=== PATIENT | male | born 1960 | race Caucasian/White ===

== ENCOUNTER 2017-11-10 09:04 | Outpatient (CLI) | payer OTHER ==
--- NOTE | 2017-11-10 10:59 | MRI ---
MRI OF THE RIGHT KNEE: DATE: 11/10/17. PROVIDED CLINICAL HISTORY: Right knee pain. FINDINGS: The anterior cruciate ligament, posterior cruciate ligament, medial collateral ligament, and lateral collateral ligamentous complex demonstrate an intact MR appearance, as does the extensor mechanism. There is a complex nondisplaced tear involving the body and posterior horn of the medial meniscus. T he lateral meniscus demonstrates no evidence for tear. There is tricompartmental osteophyte formation and articular cartilage irregularity. Focal near full -thickness cartilage fissure involves the lateral patellar facet inferiorly. Partial thickness small chondral delamination involves more cranial aspects of lateral patellar facet. There is articular c artilage loss involving the central weight bearing portions of the medial femoral condyle which appea rs focally full thickness and associated with minimal subcortical signal alteration. There is a moderate to large knee joint effusion. No focal concerning regional marrow or muscular signal abnormality apparent. IMPRESSION: 1. Complex nondisplaced body and posterior horn medial meniscal tear. 2. Tricompartmental degenerative chondrosis with preferential involvement of medial femoral condyle and lateral patellar facet. 3. Moderate to large knee joint effusion. POS: [facility]UNG
== END 2017-11-10 09:05 | disposition home or self-care (01) ==
LOC: TBSIIMAG 09:04
PROVIDERS: ATTEND Orthopaedic Surgery
DX: M25.561 Pain in right knee (principal); S83.231A Complex tear of medial meniscus, current injury, right knee, initial encounter; M25.461 Effusion, right knee

== ENCOUNTER 2017-11-25 12:31 | Outpatient (CLI) | payer OTHER ==
[2017-11-25 14:13] LABS: #Basophils 0.1 thou/uL (0.0-0.2); #Eosinphils 0.2 thou/uL (0.0-0.7); #Lymphocytes 3.7 thou/uL (1.20-3.40); #Monocytes 0.7 thou/uL (0.11-0.59); #Neutrophils 7.1 thou/uL (1.40-6.50); %Basophils 0.9 % (0.0-1.0); %Eosinophils 1.4 % (0.0-10.0); %Lymphocytes 31.4 % (21.0-51.0); %Monocytes 5.8 % (0.0-10.0); %Neutrophils 60.5 % (42.0-75.0); Hemoglobin 17.7 g/dL (14.0-18.0); Mean Corpuscular HGB CONC 33.7 g/dL (32.0-36.0); Mean Platelet Volume 7.8 fL (7.4-10.4); Platelet Count 245 thou/uL (130-400); RBC Distribution Width 11.7 % (11.5-14.5); White Blood Cell (WBC) Count 11.8 thou/uL (4.8-10.8)
[2017-11-25 14:16] LABS: Bilirubin Negative (Negative); Blood, Urine Negative (Negative); Clarity CLEAR (Clear); Glucose, Urine (Dipstick) Negative (Negative); Leukocyte Trace (Negative); Nitrite Negative (Negative); Protein, Urine (Dipstick) Negative (Neg-Trace); Specific Gravity, Urine 1.014 (1.002-1.036); Urobilinogen 0.2 mg/dL (0.2-1.0)
[2017-11-25 14:18] LABS: PTT 30.3 SEC (22.9-36.1); Prothrombin Time 12.9 SEC (12.0-14.7)
[2017-11-25 14:20] LABS: Bacteria/HPF None Seen HPF (None Seen); Hyaline Casts/LPF 0-3 HYALINE CAST LPF (0-3 Hyaline); Pathc Cast-AUWi Flag 0.29 (0-2.49); Squamous Epithelial 0-3 HPF (0-3); WBC/HPF 0-3 HPF (0-3)
[2017-11-25 14:31] LABS: Anion Gap 14 mmol/L (10-20); BUN (Urea Nitrogen) 12 mg/dL (8.4-25.7); Calc. Creatinine Clearance 0 mL/min (70-130); Calcium 9.7 mg/dL (7.8-10.44); Carbon Dioxide 24 mmol/L (22-29); Chloride 104 mmol/L (98-107); Estimated GFR-MDRD Greater than 90; Glucose 82 mg/dL (70-105); Potassium 4.2 mmol/L (3.5-5.1); Sodium 138 mmol/L (136-145)
== END 2017-11-25 12:32 | disposition home or self-care (01) ==
LOC: LABBT 12:31
PROVIDERS: ATTEND Orthopaedic Surgery
DX: Z01.818 Encounter for other preprocedural examination (principal); M17.11 Unilateral primary osteoarthritis, right knee
CPT/HCPCS: 80048; 81001; 85025; 85610; 85730; 87081; 93005; 93010

== ENCOUNTER 2018-11-25 08:52 | Outpatient (CLI) | payer OTHER ==
--- NOTE | 2018-11-25 11:33 | MRI ---
MRI OF RIGHT SHOULDER: DATE: 11/25/2018. PROVIDED CLINICAL HISTORY: Shoulder pain. FINDINGS: Comparison is made with the study dated 06/05/2013. There is full-thickness, full-width retracted tea ring of the supraspinatus tendon with retraction to the level of the glenohumeral joint. There is fu ll-thickness, near full width retracted tearing of the infraspinatus tendon with retraction to the le alfredo of the glenohumeral joint. There is high-grade partial thickness undersurface tearing involving the caudal fibers of the distal subscapularis. Teres minor appears intact. Changes of prior rotator cuff repair and biceps tenodesis are noted. The visualized longhead biceps tendon subsequent to the tenodesis appears intact. There is a moderate glenohumeral joint effusion that freely communicates with the subacromial subdelt oid bursa. The glenoid labrum and glenohumeral articular cartilage appear preserved. Acromioclavicular joint osteoarthrosis is demonstrated without significant mass effect upon the subja cent supraspinatus. There is generalized rotator cuff muscular volume loss with fatty infiltration i nvolving the supraspinatus, infraspinatus, and teres minor. No focal concerning regional marrow and muscular signal abnormality is evident. IMPRESSION: 1. Massive rotator cuff tear as described. 2. Moderate glenohumeral joint effusion. 3. Acromioclavicular joint osteoarthrosis. POS: [facility]
== END 2018-11-25 08:53 | disposition home or self-care (01) ==
LOC: TBSIIMAG 08:52
PROVIDERS: ATTEND Orthopaedic Surgery
DX: M25.511 Pain in right shoulder (principal); M19.011 Primary osteoarthritis, right shoulder; M25.411 Effusion, right shoulder; M75.101 Unspecified rotator cuff tear or rupture of right shoulder, not specified as traumatic

== ENCOUNTER 2018-12-21 07:53 | Outpatient (CLI) | payer OTHER ==
[2018-12-21 13:54] LABS: #Basophils 0.1 thou/uL (0.0-0.2); #Eosinphils 0.1 thou/uL (0.0-0.7); #Lymphocytes 3.5 thou/uL (1.20-3.40); #Monocytes 0.7 thou/uL (0.11-0.59); #Neutrophils 6.3 thou/uL (1.40-6.50); %Basophils 0.8 % (0.0-1.0); %Lymphocytes 32.6 % (21.0-51.0); %Monocytes 6.7 % (0.0-10.0); %Neutrophils 58.9 % (42.0-75.0); Hemoglobin 15.4 g/dL (14.0-18.0); Mean Corpuscular HGB CONC 35.3 g/dL (32.0-36.0); Mean Corpuscular Hemoglobin 35.4 pg (27.0-31.0); Mean Platelet Volume 7.9 fL (7.4-10.4); Platelet Count 224 thou/uL (130-400); RBC Distribution Width 11.7 % (11.5-14.5); Red Blood Cell (RBC) Count 4.35 mill/uL (4.70-6.10); White Blood Cell (WBC) Count 10.7 thou/uL (4.8-10.8)
[2018-12-21 14:20] LABS: Anion Gap 13 mmol/L (10-20); BUN (Urea Nitrogen) 13 mg/dL (8.4-25.7); Calc. Creatinine Clearance 0 mL/min (70-130); Calcium 9.4 mg/dL (7.8-10.44); Carbon Dioxide 28 mmol/L (22-29); Chloride 104 mmol/L (98-107); Estimated GFR-MDRD Greater than 90; Glucose 91 mg/dL (70-105); Potassium 3.8 mmol/L (3.5-5.1); Sodium 141 mmol/L (136-145)
--- NOTE | 2018-12-22 07:14 | EKG ---
Test Reason : Blood Pressure : / mmHG Vent. Rate : 069 BPM Atrial Rate : 069 BPM P-R Int : 158 ms QRS Dur : 112 ms QT Int : 384 ms P-R-T Axes : 069 057 054 degrees QTc Int : 411 ms Normal sinus rhythm Normal ECG When compared with ECG of 25-NOV-2017 13:26, No significant change was found Confirmed by DR. Oscar BRIGGS ([id number]) on 12/22/2018 7:13:56 AM Referred By: TANNERRO Confirmed By:DR. Oscar BRIGGS
== END 2018-12-21 07:54 | disposition home or self-care (01) ==
LOC: LABBT 07:53
PROVIDERS: ATTEND Orthopaedic Surgery
DX: Z01.818 Encounter for other preprocedural examination (principal); M75.101 Unspecified rotator cuff tear or rupture of right shoulder, not specified as traumatic
CPT/HCPCS: 80048; 85025; 93005; 93010

== ENCOUNTER 2018-12-23 07:55 | Day surgery (SDC) | payer OTHER ==
[2018-12-23] MEDS ORDERED: Fentanyl 100 MCG/2 ML VIAL ONE (08:03)
[2018-12-23] MEDS ORDERED: Midazolam HCl 2 mg/2 ml Vial ONE (08:03)
[2018-12-23] MEDS ORDERED: Promethazine HCl 25 MG/ML VIAL IM PRN (09:48)
[2018-12-23] MEDS ORDERED: Zolpidem Tartrate 5 MG TAB PO PRN (09:48)
[2018-12-23] MEDS ORDERED: Ketorolac Tromethamine 30 MG/ML VIAL IVP PRN (09:48)
[2018-12-23] MEDS ORDERED: HYDROcodone/Acetaminophen 10/325 mg Tablet PO PRN ×2 (09:48)
[2018-12-23] MEDS ORDERED: traMADol HCl 50 MG TAB PO PRN ×2 (09:48)
[2018-12-23] MEDS ORDERED: Ropivacaine 0.2% 550 ML 550 ML NERVE BLCK SCH (09:48)
[2018-12-23] MEDS ORDERED: Ondansetron PF 4 MG/2 ML Vial IVP PRN (09:48)
[2018-12-23] MEDS ORDERED: Fentanyl 100 MCG/2 ML VIAL IV PRN (09:48)
[2018-12-23] MEDS ORDERED: Ropivacaine 0.2% HCl/PF (40 MG/20 ML VIAL) ONE (10:44)
[2018-12-23] MEDS ORDERED: Lidocaine 1% PF 5 ML VIAL ONE (10:44)
[2018-12-23] MEDS ORDERED: Rocuronium Bromide 10 MG/ML (10ML VIAL) ONE (10:44)
[2018-12-23] MEDS ORDERED: PROPOFOL 200 MG/20 ML VIAL ONE (10:44)
[2018-12-23] MEDS ORDERED: Ropivacaine 0.5% HCl/PF (150 MG/30 ML VIAL) ONE (10:44)
[2018-12-23] MEDS ORDERED: Vancomycin 1.5 GRAM/300 ML BAG 1.5 GM in Premix Bag 1 BAG IVPB SCH (11:45)
--- NOTE | 2018-12-26 11:58 | OP ---
DATE OF PROCEDURE: 12/23/2018 PREOPERATIVE DIAGNOSIS: Massive tear, rotator cuff, right shoulder. POSTOPERATIVE DIAGNOSIS: Massive tear, rotator cuff, right shoulder. PROCEDURE PERFORMED: Right open subacromial decompression followed by right open rotator cuff repair. COMIC BOOK WRITER: Kuldip Nielson PA-C ESTIMATED BLOOD LOSS: Minimal. COMPLICATIONS: None. ANESTHESIA: He had general anesthetic. He had a preoperative block. DISPOSITION: He went to recovery room in stable condition. IMPLANTS: We used 3 titanium rotator cuff anchors followed by two Bio[employer]posite SwiveLocks used for a double-row repair. INDICATIONS FOR PROCEDURE: This is a 58-year-old male who for the last couple of months has been noting increasing pain and significant weakness in his right upper extremity. An MRI found him to have a massive tear and at this time, he opted to have repair of this. DESCRIPTION OF PROCEDURE: After all appropriate consent forms were explained and signed, he was taken to the operating room and at this time was given a general anesthetic. He was placed in a modified beach chair position. All bony prominences were well padded and esposito bag was inflated to hold in this position. The right shoulder and upper extremity were then prepped and draped in standard surgical fashion. At this time, an incision was made over the anterior acromion and laterally down the arm with 15 blade. Bovie was used to coagulate any brisk venous bleeding. We then used Bovie to take a full thickness periosteal sleeve and expose the anterior acromion. This was taken down the side of the arm approximately an inch. Underlying bursa was removed and at this time, a Pablito was placed to protect the underlying structures. An anterior and inferior acromioplasty was performed with a saw as well as a rasp. At this time, I was able to visualize a massive tear. Majority of the cuff had torn off and gone posteriorly. A couple of traction sutures were placed in the large posterior cuff and finger dissection was used to free up adhesions in the superior and inferior surface. Previous biceps tenodesis had already been performed. Humeral head and glenoid were evaluated and found to overall be in good condition. We then were able to find the subscapularis, which appeared to be intact and we were able to mobilize a little bit of the rotator interval to at least try and get soft tissue closer with closed off the glenohumeral joint. At this time, as the bone was used to place some sutures to perform [id number] interval closure with the posterior cuff. At this time, we used a curette and a rongeur to prepare tuberosity for reattachment of the tendon. We also medialized our cartilage approximately 5 mm to decrease the tension on the repair. We then placed 3 rotator cuff anchors at the cartilage bone interface and took all of the sutures, placing them through the tendon in mattress fashion. We then tied all the sutures. We then performed a double row with two 4.75 BioComposite SwiveLocks on the lateral side of the arm. At this time, rotator cuff repair was assessed. Arm was taken through range of motion. No tension was noted on the repair and at this time, we thoroughly irrigated and dried. We then used multiple Ethibonds to repair deltoid sleeve through the acromion tying this on top. We then over-reamed this repair with a running Vicryl, 2-0 Vicryl and neil were used on the skin. Bulky sterile dressing was applied. All counts were correct at the end of the case and he did receive preoperative IV antibiotics. Job ID: [id number]
== END 2018-12-23 16:10 | disposition home or self-care (01) ==
LOC: SDC 07:55
PROVIDERS: ATTEND Orthopaedic Surgery
PROC: 0LQ10ZZ Repair Right Shoulder Tendon, Open Approach (ICD-10-PCS; principal; 2018-12-23)
PROC: 3E0T3BZ Introduction of Anesthetic Agent into Peripheral Nerves and Plexi, Percutaneous Approach (ICD-10-PCS; principal; 2018-12-23)
DX: M75.101 Unspecified rotator cuff tear or rupture of right shoulder, not specified as traumatic (principal); G89.18 Other acute postprocedural pain; F17.210 Nicotine dependence, cigarettes, uncomplicated; X50.1XXA Overexertion from prolonged static or awkward postures, initial encounter
CPT/HCPCS: A4306; C1713; J0690; J2001; J2250; J2704; J2795; J3010

== ENCOUNTER 2021-10-20 06:48 | Inpatient (IN) | payer BC ==
[2021-10-20] MEDS ORDERED: Heparin 10,000 UNITS/ 10 ML VIAL ONE (08:01)
[2021-10-20] MEDS ORDERED: Verapamil 5 MG/2 ML VIAL ONE (08:02)
[2021-10-20] MEDS ORDERED: Nitroglycerin 100MG/250ML BOT 250 ML ONE (08:02)
[2021-10-20 08:11] LABS: INR-International Normal Ratio 1.1
[2021-10-20] MEDS ORDERED: Morphine 2 MG/ML VIAL ONE (08:11)
[2021-10-20] MEDS ORDERED: Adenosine 6 MG/2 ML VIAL ONE (08:18)
[2021-10-20] MEDS ORDERED: Lidocaine 1% PF 5 ML VIAL ONE (08:18)
[2021-10-20 08:33] LABS: PTT 145.7 sec (22.9-36.1)
[2021-10-20] MEDS ORDERED: Morphine 4 MG/ML VIAL ONE (09:09)
[2021-10-20] MEDS ORDERED: TICAGRELOR 90 MG TABLET ONE (09:31)
[2021-10-20] MEDS ORDERED: Acetaminophen/Codeine 30-300mg Tablet PO PRN ×6 (10:01→10:57)
[2021-10-20] MEDS ORDERED: Sodium Chloride 0.9% 200 ML IV PRN ×2 (10:01)
[2021-10-20] MEDS ORDERED: Nitroglycerin 0.4 MG TAB (25 Tab Bottle) SL PRN ×4 (10:01)
[2021-10-20 10:50] VITALS: BMI 29.0
[2021-10-20] MEDS ORDERED: Mag-Al 1200 mg/1200 mg/30 ML UDCUP PO PRN (11:00)
[2021-10-20] MEDS ORDERED: Zolpidem Tartrate 5 MG TAB PO PRN (11:00)
[2021-10-20] MEDS ORDERED: Sodium Chloride 0.9% 1,000 ML IV SCH (11:00)
[2021-10-20] MEDS ORDERED: Morphine 4 MG/ML VIAL SLOW IVP PRN (11:00)
[2021-10-20] MEDS ORDERED: cloNIDine 0.1 MG TAB PO PRN (11:00)
[2021-10-20] MEDS ORDERED: Milk Of Magnesia 30 ML UDCUP PO PRN (11:00)
[2021-10-20] MEDS ORDERED: Morphine 2 MG/ML VIAL SLOW IVP PRN (11:00)
[2021-10-20 11:34] LABS: Troponin I 38.683 ng/mL (< 0.028)
[2021-10-20] MEDS ORDERED: Iopamidol 370 76% 100 ML VIAL ONE (12:46)
[2021-10-20 17:08] LABS: SARS-CoV-2 NAA Rapid Test Not Detected (NotDetected)
[2021-10-20 17:51] LABS: Troponin I 64.918 ng/mL (< 0.028)
[2021-10-20] MEDS: Atorvastatin Calcium 40 MG TAB PO SCH (20:40)
[2021-10-20] MEDS: Lisinopril 5 MG TAB PO SCH (20:40)
[2021-10-20] MEDS: TICAGRELOR 90 MG TABLET PO SCH (20:40)
[2021-10-20] MEDS: Enoxaparin Sodium 100 MG/ML SYRINGE SC SCH (20:41)
[2021-10-20] MEDS: Metoprolol Tartrate 25 MG TAB PO SCH (20:41)
[2021-10-21 03:54] LABS: #Basophils 0.1 thou/uL (0.0-0.2); #Eosinphils 0.1 thou/uL (0.0-0.7); #Lymphocytes 2.1 thou/uL (1.20-3.40); #Monocytes 0.8 thou/uL (0.11-0.59); #Neutrophils 7.3 thou/uL (1.40-6.50); %Basophils 0.5 % (0.0-1.0); %Eosinophils 0.7 % (0.0-10.0); %Lymphocytes 20.2 % (21.0-51.0); %Monocytes 7.9 % (0.0-10.0); %Neutrophils 70.7 % (42.0-75.0); Mean Corpuscular HGB CONC 34.7 g/dL (32.0-36.0); Mean Corpuscular Hemoglobin 36.2 pg (27.0-31.0); Mean Platelet Volume 7.9 fL (7.4-10.4); Platelet Count 215 thou/uL (130-400); RBC Distribution Width 11.5 % (11.5-14.5); Red Blood Cell (RBC) Count 4.42 mill/uL (4.70-6.10); White Blood Cell (WBC) Count 10.4 thou/uL (4.8-10.8)
[2021-10-21 04:14] LABS: ALT (SGPT) 43 U/L (8-55); AST (SGOT) 168 U/L (5-34); Alkaline Phosphatase 91 U/L (40-110); Anion Gap 15 mmol/L (10-20); BUN (Urea Nitrogen) 8 mg/dL (8.4-25.7); Bilirubin, Total 0.6 mg/dL (0.2-1.2); Calc. Creatinine Clearance 133 mL/min (70-130); Calcium 9.2 mg/dL (7.8-10.44); Carbon Dioxide 24 mmol/L (23-31); Cardiac Risk 4.6 (Less than 4.5); Chloride 103 mmol/L (98-107); Cholesterol 169 mg/dl (< 200 Desired); Estimated GFR 102; Globulin 2.7 g/dL (2.4-3.5); Glucose 104 mg/dL (80-115); HDL Cholesterol 37 mg/dL (>60 Neg Risk); LDL Cholesterol, Calculated 108 mg/dL; Potassium 4.1 mmol/L (3.5-5.1); Protein, Total 6.7 g/dL (5.8-8.1); Sodium 138 mmol/L (136-145); Triglycerides 119 mg/dL (Less than 150)
[2021-10-21] MEDS: Aspirin Chewable 81 MG TAB PO SCH (08:41)
[2021-10-21] MEDS: Lisinopril 5 MG TAB PO SCH ×2 (08:41→20:26)
[2021-10-21] MEDS: TICAGRELOR 90 MG TABLET PO SCH ×2 (08:42→20:26)
[2021-10-21] MEDS: Metoprolol Tartrate 25 MG TAB PO SCH ×2 (08:43→20:24)
[2021-10-21] MEDS: Enoxaparin Sodium 100 MG/ML SYRINGE SC SCH ×2 (08:43→20:26)
[2021-10-21 09:38] LABS: Critical Call Chem Troponin I RESULT DECREASING; Troponin I 36.108 ng/mL (< 0.028)
[2021-10-21] MEDS: Atorvastatin Calcium 40 MG TAB PO SCH (20:25)
[2021-10-22] MEDS: Metoprolol Tartrate 25 MG TAB PO SCH (07:47)
[2021-10-22] MEDS: Aspirin Chewable 81 MG TAB PO SCH (07:47)
[2021-10-22] MEDS: Enoxaparin Sodium 100 MG/ML SYRINGE SC SCH (07:48)
[2021-10-22] MEDS: Lisinopril 5 MG TAB PO SCH (07:48)
[2021-10-22] MEDS: TICAGRELOR 90 MG TABLET PO SCH (07:48)
[2021-10-22 11:49] VITALS: BP 127/72; TEMP 98.5
[2021-10-22] MEDS ORDERED: Atorvastatin Calcium 40 MG TAB PO SCH (21:00)
== END 2021-10-22 14:30 | disposition home or self-care (01) | DRG 247 ==
LOC: ERS 06:48 → CCL 08:22 → CCU 09:09 → 2NO 10-21 17:20
PROVIDERS: ADMIT Internal Medicine Cardiovascular Disease; ATTEND Internal Medicine Cardiovascular Disease
PROC: 027035Z Dilation of Coronary Artery, One Artery with Two Drug-eluting Intraluminal Devices, Percutaneous Approach (ICD-10-PCS; principal; 2021-10-20)
PROC: 4A023N7 Measurement of Cardiac Sampling and Pressure, Left Heart, Percutaneous Approach (ICD-10-PCS; 2021-10-20)
PROC: B2111ZZ Fluoroscopy of Multiple Coronary Arteries using Low Osmolar Contrast (ICD-10-PCS; 2021-10-20)
PROC: B2151ZZ Fluoroscopy of Left Heart using Low Osmolar Contrast (ICD-10-PCS; 2021-10-20)
DX: I21.29 ST elevation (STEMI) myocardial infarction involving other sites (principal); Z20.822 Contact with and (suspected) exposure to COVID-19; F17.210 Nicotine dependence, cigarettes, uncomplicated; I10 Essential (primary) hypertension; E78.5 Hyperlipidemia, unspecified; G62.9 Polyneuropathy, unspecified; Z90.89 Acquired absence of other organs; Z98.84 Bariatric surgery status; Z63.5 Disruption of family by separation and divorce; Z68.28 Body mass index [BMI] 28.0-28.9, adult
CPT/HCPCS: 36415; 71045; 80053; 80061; 84484; 85025; 85347; 92941; 93005; 93010; 93458; 93798; 96374; 97139; C1725; C1769; C1874; C1887; C1894; C9606; J0153; J1644; J1650; J2270; Q9967; U0002